=== PATIENT | female | born 1955 | race Caucasian/White ===

== ENCOUNTER 2017-02-06 14:30 | Inpatient (IN) | payer OTHER ==
[2017-02-07 15:16] VITALS: BMI 37.5
[2017-02-12] MEDS ORDERED: CEFAZOLIN/Water 2 GM/20 ML SYRINGE ONE (10:06)
[2017-02-12] MEDS ORDERED: Midazolam HCl 2 mg/2 ml Vial ONE ×2 (10:41→15:24)
[2017-02-12] MEDS ORDERED: Fentanyl 100 MCG/2 ML VIAL ONE ×4 (10:41→15:18)
[2017-02-12] MEDS ORDERED: traMADol HCl 50 MG TAB PO PRN ×2 (11:30)
[2017-02-12] MEDS ORDERED: diphenhydrAMINE 50 MG/ML VIAL IVP PRN (11:30)
[2017-02-12] MEDS ORDERED: Eucerin (Mineral Oil/Petrolatum,White) 30 gm Jar TOP PRN (11:30)
[2017-02-12] MEDS ORDERED: HYDROcodone/Acetaminophen 5/325 mg Tablet PO PRN (11:30)
[2017-02-12] MEDS ORDERED: Naloxone HCl 0.4 mg/ml Vial IVP PRN (11:30)
[2017-02-12] MEDS ORDERED: Ondansetron HCl/PF 4 MG/2 ML Vial IVP PRN (11:30)
[2017-02-12] MEDS ORDERED: Zolpidem Tartrate 5 MG TAB PO PRN (11:30)
[2017-02-12] MEDS ORDERED: Promethazine HCl 25 MG/ML VIAL IM PRN (11:30)
[2017-02-12] MEDS ORDERED: diphenhydrAMINE 50 MG/ML VIAL IM PRN (11:30)
[2017-02-12] MEDS ORDERED: Naloxone HCl 0.4 mg/ml Vial IV PRN (11:30)
[2017-02-12] MEDS ORDERED: Bupivacaine 0.25% 10 ML VIAL EPIDURAL PRN (11:30)
[2017-02-12] MEDS ORDERED: diphenhydrAMINE 25 MG CAP PO PRN (11:30)
[2017-02-12] MEDS ORDERED: Fentanyl/Bupivacaine 250 ML in Premix Bag 1 BAG EPIDURAL SCH (11:30)
[2017-02-12] MEDS ORDERED: Promethazine HCl 25 MG SUPP PR PRN (11:30)
[2017-02-12] MEDS ORDERED: Neomycin-Polymyxin 1 ML AMP ONE ×2 (12:24→13:52)
[2017-02-12] MEDS ORDERED: Bupivacaine/Epinephrine 0.25% 30 ML VIAL ONE (12:40)
[2017-02-12] MEDS ORDERED: Propofol 200 MG/20 ML VIAL ONE ×2 (13:21)
[2017-02-12] MEDS ORDERED: Ondansetron HCl/PF 4 MG/2 ML Vial ONE (13:21)
[2017-02-12] MEDS ORDERED: Lidocaine 2% PF 10 ML AMP (For Epidural Use) ONE (13:21)
[2017-02-12] MEDS ORDERED: ePHEDrine/0.9% NaCl/PF SYRINGE 50 mg/10 ml ONE (13:21)
[2017-02-12] MEDS ORDERED: PHENYLEPHRINE-NS 100 MCG/ML 10 ML SYRINGE ONE ×5 (13:21→15:31)
[2017-02-12] MEDS ORDERED: Fentanyl/Bupivacaine 250 ML EPIDURAL ONE (15:14)
[2017-02-12] MEDS ORDERED: Clotrimazole/Betamethasone Cream 45 GM TUBE TOP PRN (15:41)
[2017-02-12] MEDS ORDERED: Acetaminophen 500 MG TAB PO PRN (15:43)
[2017-02-12] MEDS ORDERED: Insulin NPH/Reg Insulin Hm 300 UNITS/3 ML VIAL SC SCH (15:45)
--- NOTE | 2017-02-12 16:09 | RAD ---
LEFT HIP TWO VIEWS: History: Left total hip replacement. FINDINGS/IMPRESSION: There are post-operative changes of left total hip arthroplasty in good position and alignment. Surg ical clips and soft tissue air are present. POS: [facility]
--- NOTE | 2017-02-12 16:54 | OP ---
DATE OF OPERATION: 02/12/2017 PREOPERATIVE DIAGNOSIS: Severe arthritis, left hip. POSTOPERATIVE DIAGNOSIS: Severe arthritis, left hip. PROCEDURE: Left total hip replacement. SURGEON: Darron Rowan M.D. ANESTHESIA: General. TECHNIQUE: The patient had epidural catheter inserted prior to surgery. She was given preoperative IV antibiotics, taken to the operating room, placed in the supine position. Satisfactory general a nesthesia was performed. The patient was then placed in the right lateral decubitus position. All bony prominences were well-padded and the left hip and lower extremity were sterilely prepped and dr aped in the usual fashion. A longitudinal incision was made centered over the greater trochanter ap proximately 7 inches in length and anterior lateral approach was made to the hip joint. The anterio r capsule was excised. The patient was noted to have severe arthritis in the hip joint, spurs were removed. The neck of the femoral head was cut and the head was removed. It was severely arthritic. There was flattening of the head and areas of complete loss of articular cartilage. The femur was retracted out of the way and the acetabulum was sequentially reamed up to 50 mm and a [employer] bony ingrowth acetabular shell that measured 52 mm was impacted into the acetabulum after a bone g raft was inserted to aid in bony ingrowth and a 6.5 cancellous bone screw was also inserted with exc ellent fixation. A 10 degree +4 acetabular liner was then impacted in place, locked into the acetab ular shell. The proximal femur was then addressed. There was initially addressed with a box osteot ome, then hand Charnley reamer. The canal was then sequentially reamed up to 10 mm and then sequent ially rasped up to 10 mm. Calcar reamer was utilized and different size necks were used. The +1.5 neck with a 36 mm femoral head noted to have excellent stability, gnosticist of leg length and good range of motion. The femoral trial was removed. The hip joint was copiously irrigated with antibi otic solution using the high-speed coverstitch elastic attacher and the cementless Corail femoral stem which was a sabi dard collar size 10 was impacted into the proximal femur and a +1.5 neck with a 36 mm femoral head w as impacted over the Miramontes taper of the femoral stem. The hip again was relocated and found to have good range of motion with good stability. The wound again was irrigated with antibiotic solution a nd then was closed initially with #2 Vicryl to close the anterior abductor muscles, #2 Vicryl for th e iliotibial band, 0 Vicryl for the fat and subcutaneous tissue, and skin was closed with skin stapl es. Sterile dressing was applied. The patient was then awakened, extubated, and transferred to the recovery room in stable condition. ESTIMATED BLOOD LOSS: 300 mL. COMPLICATIONS: None.
[2017-02-12] MEDS: HYDROcodone/Acetaminophen 5/325 mg Tablet PO PRN (19:26)
[2017-02-12] MEDS: hydrOXYzine 25 MG TAB PO PRN (20:49)
[2017-02-12] MEDS: Amitriptyline HCl 25 MG TAB PO SCH (20:49)
[2017-02-12] MEDS: Insulin Detemir 100 UNITS/ML 100 UNITS in Pre-Filled Syringe 1 EACH SC SCH (20:49)
[2017-02-12] MEDS: tiZANidine HCl 4 MG TAB PO SCH (20:56)
[2017-02-12] MEDS ORDERED: Insulin Detemir 100 UNITS/ML 55 UNITS in Pre-Filled Syringe 1 EACH SC SCH (21:00)
[2017-02-12] MEDS ORDERED: INSULIN DETEMIR 100 UNIT SQ SCH (21:00)
[2017-02-12] MEDS ORDERED: Sodium Chloride 0.9% 500 ML IVPB SCH (22:45)
[2017-02-12] MEDS: CEFAZOLIN/Water 2 GM/20 ML SYRINGE SLOW IVP SCH (23:03)
[2017-02-12] MEDS: Morphine 4 MG/ML VIAL IV PRN (23:04)
--- NOTE | 2017-02-12 23:07 | PDOC.PN ---
- Subjective Encounter Start Date: 02/12/17 Encounter Start Time: 23:06 Subjective: S/P Left JACKIE CC; Consult called for medical management SUB: Pt says pain controlled currently - Objective Vital Signs & Weight: Vital Signs (12 hours) Temp Pulse Resp BP Pulse Ox 02/12/17 20:45 99.6 F 97 18 140/78 100 02/12/17 16:40 97.8 F 76 18 103/62 97 Weight Weight 233 lb I&O: 02/11/17 02/12/17 02/13/17 06:59 06:59 06:59 Intake Total 1370 Output Total 475 Balance 895 Additional Labs: Accuchecks 02/12/17 02/12/17 20:48 11:27 POC Glucose 297 H 125 H Phys Exam - Physical Examination Constitutional: NAD HEENT: moist MMs Neck: no JVD Respiratory: no wheezing, no rales, no rhonchi Cardiovascular: RRR, no significant murmur, no rub Gastrointestinal: soft, non-tender distended, no guarding, no rebound tenderness left hip decrease range of motion Psychiatric: normal affect Skin: no rash Dx/Plan - Plan Pt is 61 yrs old femlae s/p Left JACKIE 1. S/P left JACKIE + Pain + DVT prophylaxis: Management per primary team Monitor repsiratory status closely 2. DM type 2: Monitor blood sugars closely Will start patient on insulin sliding scale. 3. HTN: Monitor bp closely Continue home bp meds 4. H/O TAMEKA: Pt says she was on temporary dialysis in the past. Will check BMP in am case d/w pt & RN
[2017-02-12 23:45] LABS: Anion Gap 13 mmol/L (10-20); BUN (Urea Nitrogen) 24 mg/dL (9.8-20.1); Calc. Creatinine Clearance 81 mL/min (70-130); Calcium 8.2 mg/dL (7.8-10.44); Carbon Dioxide 25 mmol/L (22-29); Chloride 100 mmol/L (98-107); Estimated GFR-MDRD 44
[2017-02-13] MEDS: HYDROcodone/Acetaminophen 5/325 mg Tablet PO PRN ×4 (00:14→18:35)
[2017-02-13] MEDS: Morphine 4 MG/ML VIAL IV PRN ×4 (01:52→20:03)
[2017-02-13] MEDS: Levothyroxine Sodium 150 MCG TAB PO SCH (06:03)
[2017-02-13] MEDS: CEFAZOLIN/Water 2 GM/20 ML SYRINGE SLOW IVP SCH (06:04)
[2017-02-13] MEDS ORDERED: Insulin Regular 300 UNITS/3 ML VIAL ONE (06:12)
[2017-02-13] MEDS: Insulin Regular 300 UNITS/3 ML VIAL SC PRN ×4 (06:16→20:15)
[2017-02-13] MEDS ORDERED: metFORMIN XR 500 MG TAB PO SCH (08:00)
[2017-02-13] MEDS: Loratadine 10 MG TAB PO SCH (08:30)
[2017-02-13] MEDS: Docusate 100 MG CAP PO SCH (08:30)
[2017-02-13] MEDS: Insulin Detemir 100 UNITS/ML 55 UNITS in Pre-Filled Syringe 1 EACH SC SCH (08:30)
[2017-02-13] MEDS: tiZANidine HCl 4 MG TAB PO SCH ×3 (08:30→20:03)
[2017-02-13] MEDS: hydrOXYzine 25 MG TAB PO PRN ×2 (08:35→20:03)
[2017-02-13] MEDS ORDERED: Lisinopril 5 MG TAB PO SCH (09:00)
[2017-02-13] MEDS ORDERED: INSULIN DETEMIR 55 UNIT SQ SCH (09:00)
--- NOTE | 2017-02-13 15:20 | PDOC.PN ---
- Subjective Encounter Start Date: 02/13/17 Encounter Start Time: 15:16 Subjective: minimal pain, doing well - Objective MAR Reviewed: Yes Vital Signs & Weight: Vital Signs (12 hours) Temp Pulse Resp BP Pulse Ox 02/13/17 11:10 98.2 F 88 20 104/64 96 02/13/17 08:32 94 02/13/17 08:00 99.4 F 94 20 02/13/17 07:15 99.4 F 88 20 116/70 95 Weight Weight 233 lb I&O: 02/12/17 02/13/17 02/14/17 06:59 06:59 06:59 Intake Total 3270 Output Total 2024 Balance 1245 Result Diagrams: 02/12/17 23:16 Additional Labs: Accuchecks 02/13/17 02/13/17 02/12/17 11:28 06:11 23:17 POC Glucose 269 H 217 H 263 H 02/12/17 20:48 POC Glucose 297 H Phys Exam - Physical Examination Neck: no JVD Respiratory: clear to auscultation bilateral Cardiovascular: RRR, no significant murmur Gastrointestinal: soft, non-tender, positive bowel sounds Musculoskeletal: edema present Dx/Plan (1) Hyperkalemia Code(s): E87.5 - HYPERKALEMIA Status: Acute Comment: Improved, avoid TODD-i, repeat K+ level in am (2) CKD (chronic kidney disease) stage 3, GFR 30-59 ml/min Code(s): N18.3 - CHRONIC KIDNEY DISEASE, STAGE 3 (MODERATE) Status: Chronic (3) DM2 (diabetes mellitus, type 2) Status: Chronic Qualifiers: Diabetes mellitus complication status: with kidney complications Diabetes mellitus complication detail: with chronic kidney disease Chronic kidney disease stage: stage 3 (moderate) (4) Hypothyroidism Code(s): E03.9 - HYPOTHYROIDISM, UNSPECIFIED Status: Chronic Qualifiers: Hypothyroidism type: unspecified Qualified Code(s): E03.9 - Hypothyroidism , unspecified Comment: Continue Levothyroxine 175mcg daily (5) Anxiety Code(s): F41.9 - ANXIETY DISORDER, UNSPECIFIED Status: Acute (6) Fibromyalgia Status: Chronic - Plan hold TODD - hyperkalemia -: cont accu/ss/ detemir/metformin -: rpt cbc, cmp * .
[2017-02-13 15:52] LABS: #Eosinphils 0.1 thou/uL (0.0-0.7); #Lymphocytes 2.7 thou/uL (1.20-3.40); #Monocytes 1.1 thou/uL (0.11-0.59); #Neutrophils 8.3 thou/uL (1.40-6.50); %Basophils 0.3 % (0.0-1.0); %Lymphocytes 22.2 % (21.0-51.0); %Monocytes 9.2 % (0.0-10.0); Hematocrit 30.1 % (36.0-47.0); Mean Platelet Volume 6.2 fL (7.4-10.4); Red Blood Cell (RBC) Count 3.33 mill/uL (4.20-5.40); White Blood Cell (WBC) Count 12.4 thou/uL (4.8-10.8)
[2017-02-13 16:09] LABS: ALT (SGPT) 12 U/L (8-55); AST (SGOT) 30 U/L (5-34); Alkaline Phosphatase 115 U/L (40-150); Anion Gap 12 mmol/L (10-20); BUN (Urea Nitrogen) 24 mg/dL (9.8-20.1); Bilirubin, Total 0.3 mg/dL (0.2-1.2); Calc. Creatinine Clearance 82 mL/min (70-130); Calcium 8.2 mg/dL (7.8-10.44); Carbon Dioxide 24 mmol/L (22-29); Chloride 100 mmol/L (98-107); Estimated GFR-MDRD 44; Globulin 3.1 g/dL (2.4-3.5); Protein, Total 6.3 g/dL (6.0-8.3)
--- NOTE | 2017-02-13 16:27 | PRG ---
DATE OF SERVICE: 02/13/2017 SUBJECTIVE: Ms. Burris has had good pain control with her indwelling epidural catheter. She has be en able to ambulate in the [place] with physical therapy. OBJECTIVE: VITAL SIGNS: The patient's maximum temperature earlier this morning was 100.6, it is 98.2 currently. Vital signs are stable. EXTREMITIES: The left lower extremity is neurovascularly intact. LABORATORY DATA: The patient's glucose has been in the 200 range. Her BMP showed low sodium of 133, high potassium of 5.3, creatinine 1.25 and a BUN of 24. ASSESSMENT AND PLAN: Patient will continue with physical therapy and the hospitalist is seen. The p atient will continue medical care for her diabetes and chronic kidney disease.
[2017-02-13] MEDS: metFORMIN 500 MG TAB PO SCH (17:11)
[2017-02-13] MEDS: Amitriptyline HCl 25 MG TAB PO SCH (20:03)
[2017-02-13] MEDS: Insulin Detemir 100 UNITS/ML 100 UNITS in Pre-Filled Syringe 1 EACH SC SCH (20:14)
[2017-02-13] MEDS: Fentanyl/Bupivacaine 250 ML in Premix Bag 1 BAG EPIDURAL SCH (21:36)
[2017-02-14] MEDS: HYDROcodone/Acetaminophen 5/325 mg Tablet PO PRN ×2 (01:37→19:56)
[2017-02-14] MEDS: Levothyroxine Sodium 150 MCG TAB PO SCH (05:47)
[2017-02-14] MEDS: Docusate 100 MG CAP PO SCH (09:13)
[2017-02-14] MEDS: metFORMIN 500 MG TAB PO SCH ×2 (09:15→16:27)
[2017-02-14] MEDS: Loratadine 10 MG TAB PO SCH (09:15)
[2017-02-14] MEDS: tiZANidine HCl 4 MG TAB PO SCH ×3 (09:18→21:10)
[2017-02-14] MEDS: hydrOXYzine 25 MG TAB PO PRN ×2 (09:22→21:09)
[2017-02-14] MEDS: Insulin Detemir 100 UNITS/ML 55 UNITS in Pre-Filled Syringe 1 EACH SC SCH (09:22)
--- NOTE | 2017-02-14 10:15 | PDOC.PN ---
- Subjective Encounter Start Date: 02/14/17 Encounter Start Time: 10:12 Subjective: minimal pain, no fever, sob - Objective MAR Reviewed: Yes Vital Signs & Weight: Vital Signs (12 hours) Temp Pulse Resp BP Pulse Ox 02/14/17 07:25 98.9 F 88 14 118/77 100 02/14/17 06:26 98.2 F 82 18 106/68 99 02/14/17 01:07 99.3 F 93 18 107/68 96 Weight Weight 233 lb I&O: 02/13/17 02/14/17 02/15/17 06:59 06:59 06:59 Intake Total 3269 2019 Output Total 2024 2099 Balance 1245 -80 Result Diagrams: 02/13/17 15:38 02/13/17 15:38 Additional Labs: Accuchecks 02/14/17 02/13/17 02/13/17 05:38 20:14 16:20 POC Glucose 100 283 H 239 H 02/13/17 11:28 POC Glucose 269 H Phys Exam - Physical Examination Constitutional: NAD Neck: no JVD Respiratory: no wheezing, clear to auscultation bilateral Cardiovascular: RRR, no significant murmur Gastrointestinal: soft, non-tender, positive bowel sounds Musculoskeletal: no edema, pulses present Dx/Plan (1) Hyperkalemia Code(s): E87.5 - HYPERKALEMIA Status: Acute Comment: Improved, avoid TODD-i, repeat K+ level in am (2) CKD (chronic kidney disease) stage 3, GFR 30-59 ml/min Code(s): N18.3 - CHRONIC KIDNEY DISEASE, STAGE 3 (MODERATE) Status: Chronic (3) DM2 (diabetes mellitus, type 2) Status: Chronic Qualifiers: Diabetes mellitus complication status: with kidney complications Diabetes mellitus complication detail: with chronic kidney disease Chronic kidney disease stage: stage 3 (moderate) (4) Hypothyroidism Code(s): E03.9 - HYPOTHYROIDISM, UNSPECIFIED Status: Chronic Qualifiers: Hypothyroidism type: unspecified Qualified Code(s): E03.9 - Hypothyroidism , unspecified Comment: Continue Levothyroxine 175mcg daily (5) Anxiety Code(s): F41.9 - ANXIETY DISORDER, UNSPECIFIED Status: Acute (6) Fibromyalgia Status: Chronic - Plan PT/OT cont acu/ss/ etc -: eventually to rehab * .
[2017-02-14] MEDS: Milk Of Magnesia 30 ML UDCUP PO PRN ×2 (10:52→16:28)
[2017-02-14] MEDS: Insulin Regular 300 UNITS/3 ML VIAL SC PRN (12:54)
--- NOTE | 2017-02-14 14:08 | PRG ---
DATE OF SERVICE: 02/14/2017 HISTORY OF PRESENT ILLNESS: The patient is 2 days status post left total hip replacement. The patie nt states that she did well last night. Her pain is decreased and she has been working with physical therapy and is able to ambulate with a walker. She is looking forward to going to rehab to improve her strength and independence. The patient has been afebrile and vital signs have been stable. The left lower extremity remains neurovascularly intact. LABORATORY DATA: Her glucoses have remained in the 200s. Her last chemistry was yesterday afternoon , sodium was low at 131, creatinine 1.24 and BUN is 24. Her hemoglobin was 9.8. The patient will continue with physical therapy in the hospital. The plan is for her to go to rehab at the time of discharge, hopefully tomorrow.
[2017-02-14] MEDS: Amitriptyline HCl 25 MG TAB PO SCH (21:09)
[2017-02-14] MEDS: Insulin Detemir 100 UNITS/ML 100 UNITS in Pre-Filled Syringe 1 EACH SC SCH (21:10)
[2017-02-14] MEDS: Fentanyl/Bupivacaine 250 ML in Premix Bag 1 BAG EPIDURAL SCH (23:49)
[2017-02-15] MEDS: Levothyroxine Sodium 150 MCG TAB PO SCH (06:03)
[2017-02-15] MEDS: metFORMIN 500 MG TAB PO SCH (08:02)
[2017-02-15] MEDS: tiZANidine HCl 4 MG TAB PO SCH ×2 (08:02→17:21)
[2017-02-15] MEDS: Docusate 100 MG CAP PO SCH (08:02)
[2017-02-15] MEDS: Loratadine 10 MG TAB PO SCH (08:03)
[2017-02-15] MEDS: Milk Of Magnesia 30 ML UDCUP PO PRN (08:03)
[2017-02-15] MEDS: Insulin Detemir 100 UNITS/ML 55 UNITS in Pre-Filled Syringe 1 EACH SC SCH (08:03)
[2017-02-15 08:26] VITALS: TEMP 98.7
--- NOTE | 2017-02-15 09:42 | PDOC.PN ---
- Subjective Encounter Start Date: 02/15/17 Encounter Start Time: 09:40 Subjective: fever during nite, no chills, sweats, dysuria - Objective MAR Reviewed: Yes Vital Signs & Weight: Vital Signs (12 hours) Temp Pulse Resp BP Pulse Ox 02/15/17 08:00 98.7 F 82 15 99/64 96 02/15/17 03:56 97.4 F L 77 16 117/70 97 02/14/17 23:38 98.3 F 83 16 108/67 97 Weight Weight 233 lb I&O: 02/14/17 02/15/17 02/16/17 06:59 06:59 06:59 Intake Total 2019 3499 Output Total 2099 1924 Balance -80 1575 Result Diagrams: 02/13/17 15:38 02/13/17 15:38 Additional Labs: Accuchecks 02/15/17 02/14/17 02/14/17 05:34 20:34 16:34 POC Glucose 75 256 H 149 H 02/14/17 10:56 POC Glucose 201 H Phys Exam - Physical Examination Constitutional: NAD Neck: no JVD Respiratory: clear to auscultation bilateral Cardiovascular: RRR, no significant murmur Gastrointestinal: soft, positive bowel sounds Musculoskeletal: no edema Dx/Plan (1) Hyperkalemia Code(s): E87.5 - HYPERKALEMIA Status: Acute Comment: Improved, avoid TODD-i, repeat K+ level in am (2) CKD (chronic kidney disease) stage 3, GFR 30-59 ml/min Code(s): N18.3 - CHRONIC KIDNEY DISEASE, STAGE 3 (MODERATE) Status: Chronic (3) DM2 (diabetes mellitus, type 2) Status: Chronic Qualifiers: Diabetes mellitus complication status: with kidney complications Diabetes mellitus complication detail: with chronic kidney disease Chronic kidney disease stage: stage 3 (moderate) (4) Hypothyroidism Code(s): E03.9 - HYPOTHYROIDISM, UNSPECIFIED Status: Chronic Qualifiers: Hypothyroidism type: unspecified Qualified Code(s): E03.9 - Hypothyroidism , unspecified Comment: Continue Levothyroxine 175mcg daily (5) Anxiety Code(s): F41.9 - ANXIETY DISORDER, UNSPECIFIED Status: Acute (6) Fibromyalgia Status: Chronic - Plan ALBRIGHT withCXR, CBC, UA * .
[2017-02-15 10:06] LABS: #Eosinphils 0.3 thou/uL (0.0-0.7); #Lymphocytes 1.6 thou/uL (1.20-3.40); #Monocytes 0.7 thou/uL (0.11-0.59); #Neutrophils 9.6 thou/uL (1.40-6.50); %Basophils 0.2 % (0.0-1.0); %Eosinophils 2.5 % (0.0-10.0); %Lymphocytes 12.9 % (21.0-51.0); %Monocytes 5.8 % (0.0-10.0); Hematocrit 26.3 % (36.0-47.0); Mean Platelet Volume 6.4 fL (7.4-10.4); Red Blood Cell (RBC) Count 2.89 mill/uL (4.20-5.40); White Blood Cell (WBC) Count 12.2 thou/uL (4.8-10.8)
--- NOTE | 2017-02-15 10:17 | RAD ---
PORTABLE CHEST: HISTORY: Fever and cough. FINDINGS: Heart size is borderline. Slightly prominent right paratracheal density similar to a 12/16/18 study a nd probably just related to portable technique. The parenchymal changes in the right base appear imp roved. There still are some linear interstitial changes in both bases. IMPRESSION: Minimally increased bibasilar interstitial lung changes could be on the basis of atelectasis versus e caitlin minimal infiltrate. POS: [facility]
[2017-02-15] MEDS ORDERED: Morphine 4 MG/ML VIAL IV PRN (12:21)
[2017-02-15] MEDS ORDERED: HYDROcodone/Acetaminophen 10/325 mg Tablet PO PRN ×2 (12:22)
[2017-02-15 13:14] VITALS: BP 97/64
--- NOTE | 2017-02-15 14:21 | DIS ---
DATE OF ADMISSION: 02/12/2017 DATE OF DISCHARGE: 02/15/2017 HISTORY OF PRESENT ILLNESS: Please see admission history and physical. HOSPITAL COURSE: The patient was worked up medically prior to admission and found to be stable for kimberly brar. On the date of admission, she was given perioperative IV antibiotics and under general anest hetic, the patient underwent left total hip replacement. Postoperatively, the patient was started on aspirin and KAITY hose for DVT prophylaxis. She had an epidural catheter, which worked very well for her as far as pain control, physical therapy, started working with the patient and she was very quick ly independently ambulating with a walker. Her incision was healing well. Her postoperative hemoglo bin was 8.5 and hematocrit 26.3. The patient remained afebrile. Vital signs remained stable. Arran gements [facility] DISCHARGE DIAGNOSES: 1. Severe arthritis, left hip, requiring total hip replacement. 2. Anemia secondary to expected blood loss from surgery. 3. Type 2 diabetes mellitus. 4. Cardiac disease. 5. Hypothyroidism. 6. History of chronic pain. 7. History of depression. DISCHARGE MEDICATIONS: The patient will continue with her previous home medication. I wrote a presc ription for her to have at [facility] and then also at home for Russell 10 one to two every 6 hours as neede d for pain #70. PLAN: Follow up in my office in 2 weeks.
--- NOTE | 2017-02-15 23:33 | DIS ---
DATE OF ADMISSION: 02/12/2017 DATE OF DISCHARGE: 02/15/2017 PRIMARY CARE PROVIDER: Tashi Quigley D.O. ADMITTING PHYSICIAN: Darron Rowan M.D. DISCHARGE DISPOSITION: Discharged to inpatient rehabilitation. FINAL DIAGNOSES: Left total hip replacement, hypertension, diabetes mellitus type 2 with chronic kid herber disease 3, anxiety disorder. DISCHARGE MEDICATIONS: Trulicity every 7 days, Elavil 25 mg at bedtime, levothyroxine 150 mcg a day, lisinopril 5 mg a day, Geodon 20 mg twice a day, duloxetine 60 mg twice a day, Fortamet 1000 mg twic e a day, tizanidine 4 mg t.i.d. p.r.n., NPH insulin 70/30, insulin detemir 100 units in the p.m. and 55 units in the morning, hydrocodone 10/325 one or two every 4 hours for pain and p.r.n. medications. ALLERGIES: No known drug allergies. PENDING AT TIME OF DISCHARGE: Nothing. CODE STATUS: FULL. HOSPITAL COURSE: The patient was placed in the hospital by Dr. Darron Rowan on 02/12/2017. She had a left total hip replacement. [facility] was consulted for patient management. The patient had a mild el evated temperature. The night before discharge chest x-ray was clear. Her white count was mildly el evated similar to admission, 12.4 and 12.2. No left shift. She was feeling well. When I examined h er this morning, vital signs are normal. Cardiorespiratory exam was normal. She had no dysuria. [place] will be at rehab and by Dr. Rowan and eventually by Dr. Tashi Quigley.
[2017-02-19] MEDS ORDERED: DULAGLUTIDE SC SCH (09:00)
== END 2017-02-15 17:32 | DRG 470 ==
LOC: SURG B 02-12 09:23
PROVIDERS: ADMIT Orthopaedic Surgery; ATTEND Orthopaedic Surgery
PROC: 0SRB0JA Replacement of Left Hip Joint with Synthetic Substitute, Uncemented, Open Approach (ICD-10-PCS; principal; 2017-02-12)
PROC: 3E0T3BZ Introduction of Anesthetic Agent into Peripheral Nerves and Plexi, Percutaneous Approach (ICD-10-PCS; 2017-02-12)
DX: M16.12 Unilateral primary osteoarthritis, left hip (principal); E11.22 Type 2 diabetes mellitus with diabetic chronic kidney disease; N18.3 Chronic kidney disease, stage 3 (moderate); D62 Acute posthemorrhagic anemia; F41.9 Anxiety disorder, unspecified; I12.9 Hypertensive chronic kidney disease with stage 1 through stage 4 chronic kidney disease, or unspecified chronic kidney disease; Z79.4 Long term (current) use of insulin; E03.9 Hypothyroidism, unspecified; I51.9 Heart disease, unspecified; E87.5 Hyperkalemia; M79.7 Fibromyalgia; Z96.653 Presence of artificial knee joint, bilateral
CPT/HCPCS: 36415; 36416; 71010; 80048; 80053; 82140; 85025; 85379; 87040; 87086; 96374; 96375; C1776; G8978-GP-CK; G8979-GP-CI; G8987-GO-CK; G8988-GO-CJ; J1170; J1200; J1815; J1885; J2001; J2250; J2270; J2405; J2704; J3010

== ENCOUNTER 2017-02-15 21:51 | Emergency (ER) | payer OTHER ==
[2017-02-15 23:51] LABS: #Eosinphils 0.4 thou/uL (0.0-0.7); #Monocytes 0.7 thou/uL (0.11-0.59); #Neutrophils 9.1 thou/uL (1.40-6.50); %Basophils 0.4 % (0.0-1.0); %Lymphocytes 16.5 % (21.0-51.0); %Monocytes 5.9 % (0.0-10.0); Mean Platelet Volume 6.3 fL (7.4-10.4); White Blood Cell (WBC) Count 12.3 thou/uL (4.8-10.8)
[2017-02-16 00:18] LABS: ALT (SGPT) 12 U/L (8-55); AST (SGOT) 31 U/L (5-34); Alkaline Phosphatase 133 U/L (40-150); Anion Gap 12 mmol/L (10-20); BUN (Urea Nitrogen) 21 mg/dL (9.8-20.1); Bilirubin, Total 0.4 mg/dL (0.2-1.2); Calc. Creatinine Clearance 0 mL/min (70-130); Calcium 8.7 mg/dL (7.8-10.44); Carbon Dioxide 24 mmol/L (22-29); Chloride 100 mmol/L (98-107); Estimated GFR-MDRD 53; Globulin 3.7 g/dL (2.4-3.5); Protein, Total 6.8 g/dL (6.0-8.3)
[2017-02-16] MEDS ORDERED: Diazepam 5 MG TAB ONE (00:42)
[2017-02-16] MEDS ORDERED: Ketorolac Tromethamine 30 MG/ML VIAL ONE (00:58)
[2017-02-16] MEDS ORDERED: Morphine 4 MG/ML VIAL ONE (02:01)
[2017-02-16] MEDS ORDERED: oxyCODONE/Acetaminophen 5 mg/325 mg Tablet PO SCH (03:00)
--- NOTE | 2017-02-16 10:03 | ULT ---
PRELIMINARY REPORT/[facility]/EMERGENCY AFTER HOURS PROCEDURE: EXAM: US Duplex Left Lower Extremity Veins EXAM DATE/TIME: Exam ordered 02/15/2017 11:44 PM CLINICAL HISTORY: 61 years old, female; Pain; Other: Lt thigh pain, S/P lt hip surg 4days ago; Prior surgery; Surgery d ate: 3-7 days post-operative; Surgery type: Lt hip replacement TECHNIQUE: Real-time ultrasound scan of the veins of the left lower extremity with color Doppler flow, spectral waveform analysis and compression. COMPARISON: No relevant prior studies available. FINDINGS: Deep veins: Unremarkable. No DVT in the visualized common femoral, femoral, proximal deep femoral or popliteal veins. The veins demonstrate normal color flow, are normally compressible, with normal phasic flow and/or augmentation response. Superficial veins: Unremarkable. No thrombus in the visualized great saphenous vein. Soft tissues: No acute findings. No popliteal cyst. IMPRESSION: Normal left lower extremity duplex venous ultrasound. Thank you for allowing us to participate in the care of your patient. Dictated and Authenticated by: Reece Mejias MD 02/16/2017 12:48 AM Central Time ([place] & [place]) FINAL REPORT LEFT LOWER EXTREMITY VENOUS DUPLEX EXAM: Date: 02/15/17 HISTORY: Patient status post left hip surgery 4 days ago with left leg pain. FINDINGS: Real-time color Doppler evaluation of the left lower extremity was performed from groin to calf. This includes evaluation of the common femoral, superficial and profunda femoral, saphenous, popliteal, a nd trifurcation veins. This shows a patent deep venous system. There is normal compressibility and au gmentation. There is no evidence of deep venous thrombosis. IMPRESSION: No evidence of deep venous thrombosis of the left lower extremity. This report is in agreement with the preliminary report issued by [facility]. POS: [facility]
== END 2017-02-16 02:57 | disposition home or self-care (01) ==
LOC: ERS 21:51
DX: G89.18 Other acute postprocedural pain (principal); M25.552 Pain in left hip; M25.562 Pain in left knee; E11.40 Type 2 diabetes mellitus with diabetic neuropathy, unspecified; I10 Essential (primary) hypertension; F32.9 Major depressive disorder, single episode, unspecified
CPT/HCPCS: 36415; 80053; 85379; 96374; 96375; J1170; J1885; J2270

== ENCOUNTER 2017-06-24 14:21 | Emergency (ER) | payer OTHER ==
[2017-06-24] MEDS ORDERED: Clindamycin/D5W 900 mg/50 ml Premix Bag ONE (14:51)
[2017-06-24 15:15] LABS: #Basophils 0.1 thou/uL (0.0-0.2); #Eosinphils 0.2 thou/uL (0.0-0.7); #Monocytes 0.5 thou/uL (0.11-0.59); #Neutrophils 3.6 thou/uL (1.40-6.50); %Basophils 0.9 % (0.0-1.0); %Eosinophils 3.6 % (0.0-10.0); %Lymphocytes 31.3 % (21.0-51.0); %Monocytes 7.1 % (0.0-10.0); %Neutrophils 57.1 % (42.0-75.0); Hemoglobin 9.6 g/dL (12.0-16.0); Mean Corpuscular HGB CONC 32.8 g/dL (32.0-36.0); Mean Corpuscular Hemoglobin 28.3 pg (27.0-31.0); Mean Corpuscular Volume 86.4 fl (81.0-99.0); Mean Platelet Volume 6.4 fL (7.4-10.4); Platelet Count 236 thou/uL (130-400); RBC Distribution Width 13.4 % (11.5-14.5); Red Blood Cell (RBC) Count 3.38 mill/uL (4.20-5.40); White Blood Cell (WBC) Count 6.3 thou/uL (4.8-10.8)
[2017-06-24 15:26] LABS: Anion Gap 13 mmol/L (10-20); BUN (Urea Nitrogen) 18 mg/dL (9.8-20.1); Calc. Creatinine Clearance 0 mL/min (70-130); Calcium 9.3 mg/dL (7.8-10.44); Carbon Dioxide 26 mmol/L (22-29); Chloride 104 mmol/L (98-107); Estimated GFR-MDRD 37; Glucose 131 mg/dL (70-105); Potassium 4.7 mmol/L (3.5-5.1); Sodium 138 mmol/L (136-145)
--- NOTE | 2017-06-24 15:51 | RAD ---
3 VIEWS RIGHT FOOT: Date: 06/24/17 HISTORY: Blister right foot 2 weeks ago, but not getting better. FINDINGS: The radiopaque needle-like foreign body within the plantar and medial soft tissues of the midfoot is stable to comparison dated 12/22/09. There is scattered forefoot and midfoot osteoarthritic change. Soft tissue swelling is similar. Lisfranc alignment is within normal limits. No acute fracture is brinda dent. Enthesopathic change off the calcaneus is similar. IMPRESSION: 1. No acute osseous abnormality. 2. Soft tissue swelling of right foot. 3. Stable retained radiopaque foreign body within the soft tissues of the plantar medial right midfo ot. POS: [facility]
[2017-06-24] MEDS ORDERED: Bacitracin Zinc 1 Packet ONE (16:12)
== END 2017-06-24 16:30 | disposition home or self-care (01) ==
LOC: SCSER 14:21
DX: L03.115 Cellulitis of right lower limb (principal); E11.621 Type 2 diabetes mellitus with foot ulcer; L97.519 Non-pressure chronic ulcer of other part of right foot with unspecified severity; M32.9 Systemic lupus erythematosus, unspecified; E11.40 Type 2 diabetes mellitus with diabetic neuropathy, unspecified; I10 Essential (primary) hypertension; F41.9 Anxiety disorder, unspecified; F32.9 Major depressive disorder, single episode, unspecified; F43.10 Post-traumatic stress disorder, unspecified; Z79.4 Long term (current) use of insulin; Z79.899 Other long term (current) drug therapy
CPT/HCPCS: 80048; 85025; 96365; J3490